=== PATIENT | female | born 1960 | race Caucasian/White ===

== ENCOUNTER 2018-08-28 07:30 | Inpatient (IN) ==
[2018-08-28] MEDS ORDERED: cefTRIAXone 1,000 MG in SODIUM CHLORIDE 0.9% 100 ML IV STA (07:44)
[2018-08-28] MEDS ORDERED: ONDANSETRON 4 MG/2 ML VIAL IV STA (08:14)
[2018-08-28] MEDS ORDERED: ONDANSETRON 4 MG/2 ML VIAL ONE (08:15)
[2018-08-28] MEDS ORDERED: PROMETHAZINE 25 MG TABLET PO PRN (08:16)
[2018-08-28] MEDS ORDERED: NICOTINE 21 MG/24 HR PATCH TRANSDERM PRN (08:16)
[2018-08-28] MEDS ORDERED: ONDANSETRON 4 MG/2 ML VIAL IV PRN (08:16)
[2018-08-28] MEDS ORDERED: ACETAMINOPHEN 325 MG TABLET PO PRN (08:16)
[2018-08-28 08:18] LABS: Basophils % 0.4 % (0.0-0.8); Eosinophils # 0.1 10*3/uL (0.0-0.87); Eosinophils % 0.9 % (0.00-10.9); Hematocrit 34.7 VOL% (35.7-47.0); Hemoglobin 11.3 GM/DL (12.0-16.0); Immature Granulocytes % 0.6 %; Immature Granulocytes Absolute 0.05 #; Lymphocytes # 1.3 10*3/uL (1.4-4.0); Lymphocytes % 15.4 % (21.3-54.2); Mean Corpuscular HGB Conc 32.6 GM/DL (32-36); Mean Corpuscular Volume 96.7 FL (87-102); Mean Platelet Volume 10.7 FL (9.6-12.0); Neutrophils % 74.7 % (38.7-73.9); Platelet Count 307 T/CUMM (130-400); Red Blood Count 3.59 MC/CUMM (3.8-5.5); Red Cell Distribution Width 12.7 % (9.3-17.3); White Blood Count 8.6 T/CUMM (4-12)
[2018-08-28] MEDS ORDERED: cefTRIAXone 1,000 MG in SODIUM CHLORIDE 0.9% 100 ML IV SCH (08:30)
[2018-08-28 08:36] LABS: Albumin 3.2 G/DL (3.4-5.0); Bilirubin,Total 0.4 MG/DL (0.2-1.0); Calcium 9.5 MG/DL (8.5-10.1); Osmolality,Calculated 269.2 MOS/KG (273-304); Total Protein 8.5 G/DL (6.4-8.3)
[2018-08-28] MEDS ORDERED: LISINOPRIL 20 MG TABLET PO SCH (09:00)
[2018-08-28 09:02] LABS: Hypochromasia 1+; Platelet Estimate Adequate
[2018-08-28] MEDS: cefTRIAXone 2,000 MG in SYRINGE 1 EACH IV SCH (10:01)
[2018-08-28] MEDS: ENOXAPARIN 40 MG/0.4 ML SYRINGE SUBCUT SCH (10:25)
[2018-08-28] MEDS: PANTOPRAZOLE 40 MG TABLET PO SCH (10:26)
[2018-08-28] MEDS ORDERED: SODIUM POLYSTYRENE SULFATE 15 GM/60 ML BOTTLE PO STA (17:16)
[2018-08-28] MEDS: DEXTROSE 5% NACL 0.9% 1,000 ML IV SCH (17:32)
[2018-08-29] MEDS: DEXTROSE 5% NACL 0.9% 1,000 ML IV SCH ×3 (03:28→23:21)
[2018-08-29 05:14] LABS: Basophils % 0.4 % (0.0-0.8); Eosinophils # 0.1 10*3/uL (0.0-0.87); Eosinophils % 2.1 % (0.00-10.9); Hematocrit 31.9 VOL% (35.7-47.0); Hemoglobin 9.9 GM/DL (12.0-16.0); Immature Granulocytes % 0.5 %; Immature Granulocytes Absolute 0.03 #; Lymphocytes # 1.7 10*3/uL (1.4-4.0); Lymphocytes % 28.9 % (21.3-54.2); Mean Corpuscular Volume 98.5 FL (87-102); Mean Platelet Volume 10.8 FL (9.6-12.0); Neutrophils % 55.1 % (38.7-73.9); Platelet Count 330 T/CUMM (130-400); Red Blood Count 3.24 MC/CUMM (3.8-5.5); Red Cell Distribution Width 12.5 % (9.3-17.3); White Blood Count 5.7 T/CUMM (4-12)
[2018-08-29 05:27] LABS: Calcium 8.8 MG/DL (8.5-10.1); Osmolality,Calculated 281.4 MOS/KG (273-304)
[2018-08-29] MEDS ORDERED: CLORAZEPATE 3.75 MG TABLET PO ONE (08:08)
[2018-08-29] MEDS: ENOXAPARIN 40 MG/0.4 ML SYRINGE SUBCUT SCH (08:57)
[2018-08-29] MEDS: cefTRIAXone 2,000 MG in SYRINGE 1 EACH IV SCH (08:57)
[2018-08-29] MEDS: PANTOPRAZOLE 40 MG TABLET PO SCH (09:09)
[2018-08-30 07:33] VITALS: BP 144/77
[2018-08-30] MEDS: PANTOPRAZOLE 40 MG TABLET PO SCH (09:02)
[2018-08-30] MEDS: ENOXAPARIN 40 MG/0.4 ML SYRINGE SUBCUT SCH (09:02)
[2018-08-30] MEDS: cefTRIAXone 2,000 MG in SYRINGE 1 EACH IV SCH (09:02)
== END 2018-08-30 09:38 | disposition home or self-care (01) | DRG 690 ==
LOC: N.ED 07:30 → N.EDINP 08:16 → N.3E 09:16
PROVIDERS: ADMIT Family Medicine; ATTEND Family Medicine